=== PATIENT | male | born 1985 ===

== ENCOUNTER 2017-04-29 12:38 | Inpatient (IN) | payer MEDICARE, MEDICAID ==
[2017-04-29 12:40] VITALS: BMI 28.8
[2017-04-29 12:47] VITALS: O2SAT 99
--- NOTE | 2017-04-29 12:55 | ED PDOC ---
Arrival/HPI - General Historian: Patient - General Chief Complaint: Psychiatric Evaluation Time Seen by Provider: 04/29/17 12:53 - History of Present Illness Narrative History of Present Illness (Text): 04/29/17 13:19 31-year-old male sent from [facility] for admission for SI with auditory hallucinations. Patient hearing voices telling him to cut himself. Patient admits to cutting himself on the left upper arm. Denies chest pain or shortness of breath. (Lacy Fernandez) Past Medical History - Provider Review Nursing Documentation Reviewed: Yes - Travel History Have you recently traveled outside [place] w/in the past 3 mons?: No - Infectious Disease Hx of Infectious Diseases: None - Cardiac Hx Cardiac Disorders: No Hx Hypertension: No - Pulmonary Hx Tuberculosis: No - Neurological HX Cerebrovascular Accident: No Hx Seizures: No - HEENT Hx HEENT Disorder: No - Renal Hx Renal Disorder: No - Endocrine/Metabolic Hx Endocrine Disorders: No - Hematological/Oncological Hx Blood Disorders: Yes Hx Cancer: No Hx Hepatitis C: Yes - Integumentary Hx Dermatological Disorder: No - Musculoskeletal/Rheumatological Hx Musculoskeletal Disorders: No - Gastrointestinal Hx Pancreatitis: Yes (alt 93) - Genitourinary/Gynecological Hx Sexually Transmitted Diseases: No - Psychiatric Hx Anxiety: Yes Hx Depression: Yes Hx Schizophrenia: Yes (hearing voices to hurt himself) Hx Substance Use: Yes (heroin) - Surgical History Other/Comment: Right wrist tendon repair for past suicide attempt. 2002 - Anesthesia Hx Anesthesia: Yes Hx Anesthesia Reactions: No Hx Malignant Hyperthermia: No Family/Social History - Physician Review Nursing Documentation Reviewed: Yes Family/Social History: Unknown Family HX Smoking Status: Heavy Smoker > 10 Cigarettes Daily Hx Alcohol Use: Yes Frequency of alcohol use: Daily Hx Substance Use: Yes (heroin) Substance used: HEROIN Allergies/Home Meds Allergies/Adverse Reactions: Allergies No Known Allergies Allergy (Verified 04/29/17 12:43) Home Medications: Home Meds Medication Instructions Recorded Confirmed QUEtiapine [SEROquel] 200 mg PO DAILY 04/29/17 04/29/17 busPIRone [Buspar] 10 mg PO BID 04/29/17 04/29/17 Review of Systems - Review of Systems ENT: absent: Sore Throat, Sinus Congestion Respiratory: absent: SOB, Cough Cardiovascular: absent: Chest Pain Gastrointestinal: absent: Abdominal Pain, Diarrhea, Vomiting Genitourinary Male: absent: Dysuria Skin: Laceration Neurological: absent: Headache Psychiatric: Depression, Suicidal Ideation Physical Exam Vital Signs Reviewed: Yes Temperature: Afebrile Blood Pressure: Normal Pulse: Regular Respiratory Rate: Normal Appearance: Positive for: Well-Appearing, Non-Toxic, Comfortable Pain Distress: None Mental Status: Positive for: Alert and Oriented X 3 - Systems Exam Head: Present: Atraumatic Neck: Present: Normal Range of Motion Respiratory/Chest: Present: Clear to Auscultation, Good Air Exchange. No: Respiratory Distress, Accessory Muscle Use Cardiovascular: Present: Regular Rate and Rhythm Abdomen: No: Tenderness Upper Extremity: Present: Other (+ multiple superficial linear lacerations to left upper arm. no surrounding erythema. ). No: Tenderness, Swelling Neurological: Present: GCS=15 Skin: Present: Warm, Dry Psychiatric: Present: Alert, Oriented x 3, Depressed Mood, Suicidal Ideation, Hallucinations Vital Signs Temp Pulse Resp BP Pulse Ox 04/29/17 12:43 98.2 F 66 18 100/62 99 Medical Decision Making ED Course and Treatment: 04/29/17 13:26 31yr old male, transfer from [facility] for SI and auditory hallucinations labs reviewed. pt in no distress. impression; SI, auditory hallucinations admit behavioral health floor. (Lacy Fernandez) 04/29/17 13:31 I was available for consultation during PA evaluation. The chart was reviewed by me, and I agree with disposition. The documented history was done by the physician inside sales lead. The documented physical exam was done by the physician inside sales lead. The documented procedures were done by the physician inside sales lead. (Yogi Mckeon) Disposition/Present on Arrival - Present on Arrival Any Indicators Present on Arrival: No History of DVT/PE: No History of Uncontrolled Diabetes: No Urinary Catheter: No History of Decub. Ulcer: No History Surgical Site Infection Following: None - Disposition Have Diagnosis and Disposition been Completed?: Yes Disposition Time: 12:55 Patient Plan: Admission - Disposition Diagnosis: Suicidal ideation Disposition: HOSPITALIZED Condition: FAIR Forms: [employer] ([place]ian)
[2017-04-29] MEDS ORDERED: Alum-Mag Hydrox-Simethicone Susp (30 mL) PO PRN (14:28)
[2017-04-29] MEDS ORDERED: Magnesium Hydroxide Susp 30 ml UD PO PRN (14:28)
--- NOTE | 2017-04-29 15:26 | PCM.BM ---
Treatment Plan Problems - Problems identified on initial assessmt Delusions Date Initiated: 04/29/17 Time Initiated: 15:24 Assessment reference: NA Status: Active Priority: 1 Alt. Sleep Patterns Date Initiated: 04/29/17 Time Initiated: 15:24 Assessment reference: NA Status: Active Priority: 2 Anxiety r/t Substance Abuse Date Initiated: 04/29/17 Time Initiated: 15:25 Assessment reference: NA Status: Active Treatment assets and liabiliti Patient Assests: adapts well, cooperative, ADL independent, physically healthy, financial stabiity, cognitively intact Patient Liabilities: live alone (patient is homeless), poor support system, substance abuse, other - Milieu Protocol Maintain good personal hygiene: daily Encourage regular showers, daily Remind patient to perform daily oral care, daily Assist patient to perform ADL's Maintain personal safety: every shift Educate patient to report safety concerns to staff, every shift Monitor environment for contraband/sharps Medication safety: Monitor for expected outcome, potential side effects: every shift, Assess barriers to learning: every shift, Assess readiness for medication education: every shift Family Contact Family involvement: Famliy/SO not involved Family contact: Patient declines to allow family contact at present, Other Discharge/Continuing Care - Education Needs Education Needs: Patient Medication, Patient Diagnosis/Disease Process, Patient Coping Skills, Patient Anger Management skills, Patient Health Practices/Safety , Patient Personal Hygiene/Grooming, Patient Aftercare Safety Plan
[2017-04-29] MEDS: Divalproex 250 mg DR (BID formulation) PO SCH (21:43)
[2017-04-30 07:52] LABS: CHOLESTEROL 166 mg/dL (130-200)
[2017-04-30] MEDS: Divalproex 250 mg DR (BID formulation) PO SCH (09:10)
[2017-04-30 09:23] LABS: PHOSPHOROUS 2.8 mg/dL (2.5-4.5)
--- NOTE | 2017-04-30 12:12 | PCM.BM ---
<Theodore Damico - Last Filed: 04/30/17 12:12> Treatment Plan Problems - Problems identified on initial assessmt Delusions Date Initiated: 04/29/17 Time Initiated: 15:24 Assessment reference: NA Status: Active Priority: 1 Alt. Sleep Patterns Date Initiated: 04/29/17 Time Initiated: 15:24 Assessment reference: NA Status: Active Priority: 2 Anxiety r/t Substance Abuse Date Initiated: 04/29/17 Time Initiated: 15:25 Assessment reference: NA Status: Active Treatment assets and liabiliti Patient Assests: adapts well, cooperative, ADL independent, physically healthy, financial stabiity, cognitively intact Patient Liabilities: live alone (patient is homeless), poor support system, substance abuse, other - Milieu Protocol Maintain good personal hygiene: daily Encourage regular showers, daily Remind patient to perform daily oral care, daily Assist patient to perform ADL's Maintain personal safety: every shift Educate patient to report safety concerns to staff, every shift Monitor environment for contraband/sharps Medication safety: Monitor for expected outcome, potential side effects: every shift, Assess barriers to learning: every shift, Assess readiness for medication education: every shift Family Contact Family involvement: Famliy/SO not involved Family contact: Patient declines to allow family contact at present, Other Discharge/Continuing Care - Education Needs Education Needs: Patient Medication, Patient Diagnosis/Disease Process, Patient Coping Skills, Patient Anger Management skills, Patient Health Practices/Safety , Patient Personal Hygiene/Grooming, Patient Aftercare Safety Plan Treatment Plan Review - Problem Delusions Time Initiated: 15:24 Alt. Sleep Patterns Time Initiated: 15:24 Anxiety r/t Substance Abuse Time Initiated: 15:25 <Jacquelyn Solomon - Last Filed: 05/01/17 13:45> - Diagnosis (1) Heroin dependence Status: Acute Interventions: 05/01/17 13:43 Monitoring withdrawal symptoms Medical detoxification Pharmacotherapy for alcohol/benzos/opioid dependence Maintaining sobriety Relapse prevention Possible rehabilitation Motivational interviewing 12-step programs: AA meetings (2) Schizoaffective disorder Status: Acute Interventions: 05/01/17 13:44 Psychoeducation/psychotherapy Psychopharmacology/adjustment of medications as needed/ monitoring possible side effects Evaluate pt on daily basis Compliance with medications and follow up appointments Long acting medication if pt is noncompliant with pill form Suicide and homicide risk assessment and prevention, coping strategies, safety plan Relapse prevention Reduction of symptoms Improve functional status Possible assertive community treatment Cognitive behavioral therapy Family involvement Possible social skill training as outpatient
--- NOTE | 2017-04-30 13:26 | CARD ---
APPROVED REPORT EKG Measurement Heart [id number] <Conclusion> Normal sinus rhythm Normal ECG
--- NOTE | 2017-04-30 13:39 | CP.PCM.CON ---
<Juliette Page - Last Filed: 04/30/17 17:35> History of Present Illness - History of Present Illness History of Present Illness: 31 year old male with past medical hx of substance abuse and hepatitis C presents to [facility] for auditory hallucinations with suicide attempt. Patient states that he was hearing voices that told him to cut himself. Patient has multiple cuts to his L upper arm. Patient has a history of prior sucide attempt where he cut himself in his R wrist. Patient reports that he wants to stop using heroin. States that he uses approx 20 bag a day for a lot of years. Last use was Sunday night. Currently reports having symptoms of withdrawal. States having body aches. Denies suicidal or homicidal ideation. Denies visual/auditory hallucination, headaches, dizziness, cp, palpitations, sob, urinary symptoms, changes in bowel habits. Allergies: NKDA Medications: denies Medical Hx: Hepatitis C Surgical Hx: denies Social Hx: uses 20 bags of heroin IV daily for "a lot of years, admits to marijuana use, smokes 2 cigs/day, denies alcohol use Family Hx: mother - HTN; father - CVA Review of Systems - Constitutional Constitutional: absent: Chills, Fever - EENT Eyes: absent: Change in Vision Ears: absent: Dizziness - Cardiovascular Cardiovascular: absent: Chest Pain, Dyspnea, Lightheadedness, Palpitations - Respiratory Respiratory: absent: Cough, Dyspnea - Gastrointestinal Gastrointestinal: absent: Abdominal Pain, Bloating, Constipation, Diarrhea, Nausea, Vomiting - Genitourinary Genitourinary: absent: Difficulty Urinating, Dysuria, Urinary Frequency - Musculoskeletal Musculoskeletal: absent: Numbness, Tingling - Neurological Neurological: absent: Dizziness, Numbness, Headaches - Psychiatric Psychiatric: absent: Anxiety, Auditory Hallucinations, Homicidal Ideation, Suicidal Ideation, Visual Hallucinations Past Patient History - Infectious Disease Hx of Infectious Diseases: None - Past Social History Smoking Status: Heavy Smoker > 10 Cigarettes Daily - CARDIAC Hx Cardiac Disorders: No Hx Hypertension: No - PULMONARY Hx Tuberculosis: No - NEUROLOGICAL HX Cerebrovascular Accident: No Hx Seizures: No - HEENT Hx HEENT Problems: No - RENAL Hx Chronic Kidney Disease: No - ENDOCRINE/METABOLIC Hx Endocrine Disorders: No - HEMATOLOGICAL/ONCOLOGICAL Hx Blood Disorders: Yes Hx Cancer: No Hx Hepatitis C: Yes - INTEGUMENTARY Hx Dermatological Problems: No - MUSCULOSKELETAL/RHEUMATOLOGICAL Hx Musculoskeletal Disorders: No - GASTROINTESTINAL Hx Pancreatitis: Yes (alt 93) - GENITOURINARY/GYNECOLOGICAL Hx Sexually Transmitted Disorders: No - PSYCHIATRIC Hx Anxiety: Yes Hx Depression: Yes Hx Schizophrenia: Yes (hearing voices to hurt himself) Hx Substance Use: Yes (heroin) - SURGICAL HISTORY Other/Comment: Right wrist tendon repair for past suicide attempt. 2003 - ANESTHESIA Hx Anesthesia: Yes Hx Anesthesia Reactions: No Hx Malignant Hyperthermia: No Meds Allergies/Adverse Reactions: Allergies Allergy/AdvReac Type Severity Reaction Status Date / Time No Known Allergies Allergy Verified 04/29/17 14:30 - Medications Medications: Current Medications Acetaminophen (Tylenol 325mg Tab) 650 mg PO Q6 PRN PRN Reason: Pain, moderate (4-7) Al Hydrox/Mg Hydrox/Simethicone (Maalox Plus 30 Ml) 30 ml PO DAILY PRN PRN Reason: Indigestion / Heartburn Clonidine HCl (Catapres) 0.1 mg PO Q6H PRN PRN Reason: oppiate withdrawal Last Admin: 04/30/17 09:10 Dose: 0.1 mg Clonidine HCl (Catapres) 0.1 mg PO BID PRN PRN Reason: opioid withdrawals Divalproex Sodium (Depakote Dr (*Bid*)) 250 mg PO [facility] PRN Reason: Protocol Last Admin: 04/30/17 09:10 Dose: 250 mg Haloperidol (Haldol) 5 mg PO Q6H PRN; Protocol PRN Reason: Agitation Last Admin: 04/29/17 21:43 Dose: 5 mg Lorazepam (Ativan) 2 mg PO Q6H PRN; Protocol PRN Reason: Agitation Last Admin: 04/30/17 09:12 Dose: 2 mg Magnesium Hydroxide (Milk Of Magnesia) 30 ml PO DAILY PRN PRN Reason: Constipation Multivitamins/Minerals (Therapeutic-M Tab) 1 tab PO 0800 [facility] Quetiapine Fumarate (Seroquel) 50 mg PO HS [facility] PRN Reason: Protocol Last Admin: 04/29/17 21:44 Dose: 50 mg Tramadol HCl (Ultram) 50 mg PO TID [facility] Physical Exam - Constitutional Appears: Non-toxic, No Acute Distress - Head Exam Head Exam: ATRAUMATIC, NORMAL INSPECTION - Eye Exam Eye Exam: EOMI, Normal appearance Pupil Exam: NORMAL ACCOMODATION, PERRL - ENT Exam ENT Exam: Mucous Membranes Moist - Neck Exam Neck exam: Positive for: Full Rom - Respiratory Exam Respiratory Exam: Clear to Auscultation Bilateral, NORMAL BREATHING PATTERN. absent: Rales, Rhonchi, Wheezes - Cardiovascular Exam Cardiovascular Exam: REGULAR RHYTHM, +S1, +S2 - GI/Abdominal Exam GI & Abdominal Exam: Normal Bowel Sounds, Soft. absent: Guarding, Rebound, Rigid, Tenderness - Extremities Exam Extremities exam: Positive for: full ROM, normal inspection. Negative for: calf tenderness - Back Exam Back exam: NORMAL INSPECTION - Neurological Exam Neurological exam: Alert, CN II-XII Intact, Oriented x3 - Psychiatric Exam Psychiatric exam: Normal Affect, Normal Mood - Skin Skin Exam: Normal Color, Warm Results - Vital Signs Recent Vital Signs: Last Vital Signs Temp 98.5 F 04/30/17 07:47 Pulse 70 04/30/17 07:47 Resp 20 04/30/17 07:47 BP 111/61 04/30/17 07:47 Pulse Ox 99 04/29/17 14:39 - Labs Labs: Laboratory Results - last 24 hr 04/30/17 04/30/17 04/30/17 07:29 07:29 09:15 Hemoglobin A1c 5.4 Phosphorus 2.8 Magnesium 2.0 Triglycerides 46 Cholesterol 166 LDL Cholesterol Direct 78 HDL Cholesterol 64 H Assessment & Plan - Assessment and Plan (Free Text) Assessment: 31 year old male with past medical hx of Hep C and schizophrenia presents with auditory hallucinations with suicide attempt Plan: 1. Hx Hepatitis C -States known Hep C diagnosis that was never treated -Will order hepatitis panel and hepatic US -Monitor LFTs -Avoid hepatotoxic agents -Psych management per primary team -Plan d/w attending 2. Polysubstance abuse -UDS + opiates, cocaine, cannabinoids -Monitor for withdrawal symptoms -Encourage cessation <Edna Arias - Last Filed: 04/30/17 18:30> Meds - Medications Medications: Current Medications Acetaminophen (Tylenol 325mg Tab) 650 mg PO Q6 PRN PRN Reason: Pain, moderate (4-7) Al Hydrox/Mg Hydrox/Simethicone (Maalox Plus 30 Ml) 30 ml PO DAILY PRN PRN Reason: Indigestion / Heartburn Clonidine HCl (Catapres) 0.1 mg PO BID PRN PRN Reason: opioid withdrawals Last Admin: 04/30/17 15:11 Dose: 0.1 mg Divalproex Sodium (Depakote Dr(*Bid*)) 500 mg PO [facility] PRN Reason: Protocol Gabapentin (Neurontin) 300 mg PO TID [facility] PRN Reason: Protocol Loperamide HCl (Imodium) 2 mg PO QID PRN PRN Reason: Diarrhea Lorazepam (Ativan) 2 mg PO Q6H PRN; Protocol PRN Reason: Agitation Last Admin: 04/30/17 09:12 Dose: 2 mg Lorazepam (Ativan) 2 mg IM Q6H PRN; Protocol PRN Reason: agitaiton Magnesium Hydroxide (Milk Of Magnesia) 30 ml PO DAILY PRN PRN Reason: Constipation Multivitamins/Minerals (Therapeutic-M Tab) 1 tab PO 0800 [facility] Olanzapine (Zyprexa Zydis) 5 mg PO [facility] PRN Reason: Protocol Ondansetron HCl (Zofran Odt) 4 mg PO Q8H PRN PRN Reason: Nausea/Vomiting Quetiapine Fumarate (Seroquel) 100 mg PO HS [facility] PRN Reason: Protocol Tramadol HCl (Ultram) 50 mg PO TID [facility] Last Admin: 04/30/17 15:11 Dose: 50 mg Ziprasidone (Geodon Inj) 20 mg IM Q6H PRN; Protocol PRN Reason: agitation/psychosis Results - Vital Signs Recent Vital Signs: Last Vital Signs Temp 98.5 F 04/30/17 07:47 Pulse 76 04/30/17 16:24 Resp 20 04/30/17 07:47 BP 117/68 04/30/17 16:24 Pulse Ox 99 04/29/17 14:39 - Labs Labs: Laboratory Results - last 24 hr 04/30/17 04/30/17 04/30/17 07:29 07:29 09:15 Hemoglobin A1c 5.4 Phosphorus 2.8 Magnesium 2.0 Triglycerides 46 Cholesterol 166 LDL Cholesterol Direct 78 HDL Cholesterol 64 H Attending/Attestation - Attestation I have personally seen and examined this patient.: Yes I have fully participated in the care of the patient.: Yes I have reviewed all pertinent clinical information: Yes Notes (Text): I have seen and examined the patient at bedside. Agree with the above note with the following additions/ exceptions: Briefly this is 31 year old male with history of polysubstance abuse (heroin IV, cocaine and marijuana), known and untreated Hep C who was admitted for auditory hallucinations with suicide attempt secondary to schizophrenia vs substance induced psychosis. Patient is complaining that he is going thru withdrawal. Denies GI distress, flu like symptoms however admits to agitation, irritability and arthralgia. Manage as per psych. Counselling provided by me. He has known and untreated Hep c. He is unsure if he has hep B. Will order for hep panel and liver ultrasound. He has superficial cut moreira on left upper arm. Start bacitracin. Upon discharge patient will follow up with PMD of choice. Dr Edna Arias
--- NOTE | 2017-04-30 16:53 | PCM.PSYCH ---
Initial Psychiatric Evaluation - Initial Psychiatric Evaluation Type of Admission: Voluntary Legal Status: Capacity (atient has capacity to sign consent for treatment) Chief Complaint (in patient's own words): "I want to get out of here, my needs are not addressed, I am withdrawing from opioids" Patient's Reaction to Hospitalization: patient was admitted for disorganized and psychotic behavior, patient intentionally cut his shoulder multiple times, was hearing voices, was not compliant with the medications. History of Present Illness and Precipitating Events: As per [facility] assessment: Pt is a 31 year old male, single, with two children in [place] (as per [facility] h/o). Pt immigrated from [place] 5 years ago, currently lives in a fpc, does not work, receives $300 in disability a month and "robs people" for money. Pt was transferred from the [facility] for Schizophrenia- paranoid type, depression, pt was also using heroin daily about 20 bags intravenously, pt intentionally cut his left shoulder multiple times as per pt he was hearing command type hallucinations. Due to the severity of patients symptoms and aggressive/disorganized behavior, pt could not be maintained as outpatient setting, needs further evaluation and stabilization in acute psychiatric unit. patient was seen at treatment team meeting, patient presented to be with psychomotor retardation, as well as not participating in the interview, no eye contact, speech was slurred, patient is Citizen [place]-speaking and this display card writer utilized the nurse Foster for translation. As per history patient was discharged from the [facility] about a week ago , after discharge patient was not compliant with the medications, relapse on drugs, patient was using heroine about 20 bags a day intravenously, patient said that he was noncompliant with the medications, and does not have outpatient psychiatrist, patient complain that he has withdrawal symptoms, pain all over his body, nausea, inability to sleep. pt was irritable, submitted 48 hr notice requested to be d/c, "because my withdrawals are not addressed", this display card writer emphasized the fact that this unit is not detox unit, was educated about tx plan and all meds. pt verbalized understanding. Stressors: pt does not work, does not have an income, pt is heroin addict. Personal hygiene/ ADLS: very poor. Psychosis: reported to hear voices, command type, pt also is guarded and paranoid, Depression: pt reported to feel depressed, hopeless and helpless, denied suicidal thoughts/plans/intent. pt denied h/o abuse. Substance abuse: heroin IV 20 bags. Alcohol: denied Smoking: denied smoking Past psychiatric h/o: was recently d/c from [facility] Apr 23, was noncompliant with meds and f/u appt. detox 2x; no rehab; multiple admissions at [facility], was d/c on zyprexa and depakote, will resume. Hospitalization: [facility] Suicidal attempts: reported prior to come to the hospital cut his left shoulder , responding to the voices. Medical h/o: relatively healthy Family h/o: denied Social h/o: homeless, chronic IV heroin abuse. Treatment goals: "I want to get better" Labs: Lab Results 04/30/17 09:15: Phosphorus 2.8, Magnesium 2.0 04/30/17 07:29: Hemoglobin A1c 5.4 04/30/17 07:29: Triglycerides 46, Cholesterol 166, LDL Cholesterol Direct 78, HDL Cholesterol 64 H Vital Signs Temp Pulse Resp BP Pulse Ox 04/30/17 16:24 76 117/68 04/30/17 07:47 98.5 F 70 20 111/61 04/29/17 14:39 98.7 F 65 20 100/63 99 04/29/17 12:43 98.2 F 66 18 100/62 99 Review of Systems: see Medical consult. MSE: irritable, angry, psychotic, pt deemed to be unreliable historian, pt looks stated age, poor personal hygiene, poor ADLs, there is irritability and psychomotor retardation, speech was:slow, slurred, poor eye contact, mood described: "I am fine, I want to go home", affect: angry, irritable, mood incongruent, thought process: disorganized, thought content: SI denied, but ?, pt denied HI, pt reported command type hallucinations, denied paranoid ideation , but pt is guarded, no insight, poor judgment: unpredictable impulse control. Impression: schizophrenia as per h/o opioid use disorder opioid withdrawals substance induced psychosis Treatment plan: Milieu/structure/supportive therapy Medical consult appreciated, see medical team note for more detailed info SW consultation for discharge plan and social issues Med management depakote 500 mg po bid will be resumed zyprexa zydis will be resumed 5mg po amhs PRN meds pain meds medical consult pt submitted 48hr notice will see Family involvement Follow up on labs Will monitor closely Pt was educated about risk/benefits and alternatives of medications, coping strategies (safety plan, suicide prevention), relapse prevention, importance of follow up with psychiatrist and therapist, stay away from drugs/alcohol/smoking Current Medications: Active Medications Generic Name Dose Route Start Last Admin Trade Name Freq PRN Reason Stop Dose Admin Acetaminophen 650 mg 04/29/17 14:24 Tylenol 325mg Tab PO Q6 PRN Pain, moderate (4-7) Al Hydrox/Mg Hydrox/Simethicone 30 ml 04/29/17 14:28 Maalox Plus 30 Ml PO DAILY PRN Indigestion / Heartburn Clonidine HCl 0.1 mg 04/29/17 14:43 Catapres PO Q6H PRN oppiate withdrawal Divalproex Sodium 250 mg 04/29/17 22:00 04/29/17 21:43 Depakosalo Clark (*Bid*) PO 250 mg AMHS RALPH Administration Protocol Haloperidol 5 mg 04/29/17 14:47 04/29/17 21:43 Haldol PO 5 mg Q6H PRN Administration Agitation Protocol Lorazepam 2 mg 04/29/17 14:49 04/29/17 21:44 Ativan PO 2 mg Q6H PRN Administration Agitation Protocol Magnesium Hydroxide 30 ml 04/29/17 14:28 Milk Of Magnesia PO DAILY PRN Constipation Quetiapine Fumarate 50 mg 04/29/17 22:00 04/29/17 21:44 Seroquel PO 50 mg HS RALPH Administration Protocol Past Psychiatric History - Past Psychiatric History Pertinent Medical Hx (Current Medical&Sleep Prob, Allergies): Allergies Allergy/AdvReac Type Severity Reaction Status Date / Time No Known Allergies Allergy Verified 04/29/17 14:30 QUEtiapine [Seroquel] 100 mg PO HS #30 tab 04/23/17 QUEtiapine [SEROquel] 200 mg PO DAILY 04/29/17 busPIRone [Buspar] 10 mg PO BID 04/29/17 DSM 5 DX - Recommended/Plan of Treatment Projected ELOS: 7days Prognosis: guarded Discharge Plan and Discharge Criteria: Pt will be not depressed or manic, will be more hopeful, will be not psychotic or anxious, will be not having thoughts of harming self or others, will be tolerating medications well, will not have major side effects, will be able to function, will not pose threat to self or others. - Smoking Cessation Smoking Cessation Initiated: No Reason for not providing: denied smoking
[2017-04-30] MEDS: OLANZapine 5 mg Disintegrating Tab PO SCH (21:33)
[2017-04-30] MEDS: Divalproex 500 mg DR(BID formulation) PO SCH (21:33)
[2017-05-01 08:01] LABS: BASO # 0.01 K/mm3 (0.0-2.0); BASO % 0.2 % (0.0-3.0); EOS # 0.1 (0.0-0.7); EOS % 1.4 % (1.5-5.0); GRAN # 3.28 (1.4-6.5); GRAN % 65.1 % (50.0-68.0); HEMATOCRIT 37.8 % (42.0-52.0); LYMPH # 1.4 (1.2-3.4); MEAN CELL VOLUME 85.3 fl (80.0-105.0); MEAN CORPUSCULAR HGB CONC 35.2 g/dl (31.0-37.0); MEAN PLATELET VOLUME 9.8 fl (7.0-11.0); MONO # 0.3 (0.1-0.6); MONO % 6.3 % (1.0-6.0); RED CELL DISTRIBUTION WIDTH 12.2 % (11.5-14.5)
[2017-05-01 08:11] LABS: ALB/GLOB RATIO 1.3 (1.1-1.8); ALKALINE PHOSPHATASE 61 U/L (38-126); ALT/SGPT 117 U/L (7-56); AST/SGOT 68 U/L (17-59); BILIRUBIN,TOTAL 0.5 mg/dL (0.2-1.3); BLOOD UREA NITROGEN 11 mg/dL (7-21); CALCIUM 9.3 mg/dL (8.4-10.5); CARBON DIOXIDE 28 mmol/L (21-33); CHLORIDE 103 mmol/L (95-110); GFR AFRICAN-AMERICAN > 60; GLUCOSE,RANDOM 89 mg/dL (70-110); POTASSIUM 4.2 mmol/L (3.6-5.0); SODIUM 141 mmol/L (132-148)
[2017-05-01] MEDS: Multivitamin With Minerals Tab PO SCH (08:11)
[2017-05-01] MEDS: Bacitracin/Neomycin/Polymyxin Oint(30GM) TOP SCH ×2 (08:12→18:34)
[2017-05-01] MEDS: Divalproex 500 mg DR(BID formulation) PO SCH ×2 (13:27→21:11)
[2017-05-01] MEDS: OLANZapine 5 mg Disintegrating Tab PO SCH ×2 (13:27→21:11)
--- NOTE | 2017-05-01 14:53 | PCM.PYCHPN ---
Psychiatric Progress Note - Psychiatric Progress Note Patient seen today, length of contact: 30min Patient Chief Complaint: "I want to get out of here, my needs are not addressed, I am depressed because I am in a lot of pain..." Medical Problems: see medical consult for more detailed information Diagnostic Results: 05/01/17 07:51 05/01/17 07:51 Lab Results 05/01/17 07:51: Hepatitis A IgM Ab Negative, Hep Bs Antigen Negative, Hep B Core IgM Ab Negative, Hepatitis C Antibody Pending 05/01/17 07:51: TSH 3rd Generation 0.23 L 05/01/17 07:51: Sodium 141, Potassium 4.2, Chloride 103, Carbon Dioxide 28, Anion Gap 14, BUN 11, Creatinine 0.8, Est GFR ( Amer) > 60, Est GFR (Non- Af Amer) > 60, Random Glucose 89, Calcium 9.3, Total Bilirubin 0.5, AST 68 H, ALT 117 H, Alkaline Phosphatase 61, Total Protein 7.0, Albumin 4.0, Globulin 3.0 , Albumin/Globulin Ratio 1.3 05/01/17 07:51: WBC 5.0, RBC 4.43, Hgb 13.3 L, Hct 37.8 L, MCV 85.3, MCH 30.0, MCHC 35.2, RDW 12.2, Plt Count 164, MPV 9.8, Gran % 65.1, Lymph % (Auto) 27.0, [place] % (Auto) 6.3 H, Eos % (Auto) 1.4 L, Baso % (Auto) 0.2, Gran # 3.28, Lymph # 1.4, [place] # 0.3, Eos # 0.1, Baso # 0.01 04/30/17 09:15: Phosphorus 2.8, Magnesium 2.0 04/30/17 07:29: Hemoglobin A1c 5.4 04/30/17 07:29: Triglycerides 46, Cholesterol 166, LDL Cholesterol Direct 78, HDL Cholesterol 64 H Vital Signs Temp Pulse Resp BP Pulse Ox 05/01/17 10:00 98.2 F 78 20 124/77 05/01/17 02:46 81 113/70 04/30/17 16:24 76 117/68 04/30/17 07:47 98.5 F 70 20 111/61 04/29/17 14:39 98.7 F 65 20 100/63 99 04/29/17 12:43 98.2 F 66 18 100/62 99 DSM 5 Symptoms Update: Pt is a 31 year old male, single, with two children in [place]. Pt immigrated from [place] 5 years ago, currently lives in a halfway, does not work, long h/o opioid addiction, was transferred from the [facility] for evaluation of psychosis, command type hallucinations, pt cut his shoulder prior this admission, multiple suicidal attempts (most recent last week, pt tried to hang himself and overdose on drugs), pt verbalized thoughts of harming self in the ED, pt was admitted for evaluation and stabilization, meds titration. pt submitted 48hr notice yesterday, this advertising copy writer tried her best to educate pt about tx plan and possible inpatient rehab, but pt refused to rescinded it, will initiate [facility] screening process. pt was seen today, pt is [place] speaking, utilized [employer] system, cad application support specialist [place] [id number]. pt presented to be irritable, said that he wants to leave the hospital because he is in pain, pt said that he still feels depressed, but denied thoughts of harming self or others (it is questionable, pt has multiple cuts on his left shoulder, self inflicted), self reported two suicidal attempts prior to come to the hospital (last week, tried to hang self and OD on drugs). Psychosis: reported to hear voices, command type, pt also is guarded and paranoid. Depression: pt reported to feel depressed, hopeless and helpless, denied suicidal thoughts/plans/intent. Review of Systems: see Medical consult. MSE: irritable, angry, pt deemed to be unreliable historian, pt looks stated age , poor personal hygiene, poor ADLs, there is irritability and psychomotor retardation, speech was: slow, slurred, poor eye contact, mood described: "I am fine, I want to go home", affect: angry, irritable, mood incongruent, thought process: is better organized, thought content: SI denied, but ?, pt denied HI, pt reported command type hallucinations, denied paranoid ideation, but pt is guarded, no insight, poor judgment: unpredictable impulse control. Impression: schizophrenia as per h/o opioid use disorder opioid withdrawals substance induced psychosis Treatment plan: Milieu/structure/supportive therapy Medical consult appreciated, see medical team note for more detailed info SW consultation for discharge plan and social issues Med management depakote 500 mg po bid resumed zyprexa zydis 5mg po amhs for psychosis PRN meds pain meds medical consult pt submitted 48hr notice, refused to rescinded it will call [facility] for screening Family involvement Follow up on labs Will monitor closely Pt was educated about risk/benefits and alternatives of medications, coping strategies (safety plan, suicide prevention), relapse prevention, importance of follow up with psychiatrist and therapist, stay away from drugs/alcohol/smoking Medication Change: Yes Medical Record Reviewed: Yes Consults ordered or reviewed: medical consult appreciated Goal/Treatment Plan - Goal/Treatment Plan Need for Continued Stay: Remain at risks for inpatient hospitalization, Severe depression anxiety, Discharge may exacerbated symptoms, Failed transitioning, Severe functional impairment Estimated Date of D/C: 05/04/17
[2017-05-02 09:01] LABS: FREE T4 1.13 ng/dL (0.78-2.19)
[2017-05-02 09:15] LABS: THYROID STIMULATING HORMONE 1.32 mIU/mL (0.46-4.68)
[2017-05-02] MEDS: Divalproex 500 mg DR(BID formulation) PO SCH (10:19)
[2017-05-02] MEDS: Bacitracin/Neomycin/Polymyxin Oint(30GM) TOP SCH (10:20)
[2017-05-02] MEDS: Multivitamin With Minerals Tab PO SCH (10:20)
[2017-05-02] MEDS: OLANZapine 5 mg Disintegrating Tab PO SCH (10:20)
[2017-05-02 10:31] VITALS: BP 116/72; PULSE 72; RESP 20; TEMP 97.6
--- NOTE | 2017-05-02 14:49 | PCM.PYCHDC ---
Mental Status Examination - Mental Status Examination Orientation: Person, Place, Situation, Time Memory: Intact Mood: Depressed Affect: Constricted Attention: Poor Concentration: Poor Association: Loose Fund of Knowledge: Poor Formal Thought Process: No Impairment Description of patient's judgement and insight: poor but with some improvement Psychotic Thoughts and Behaviors: denied Suicidal Ideation: No Current Homicidal Ideation?: No Plan: denied intent or plan Discharge Summary - Discharge Note Reason for Hospitalization: patient was admitted for disorganized and psychotic behavior, patient intentionally cut his shoulder multiple times, was hearing voices, was not compliant with the medications. Psychiatric History (includes Medical, Family, Personal Hx): multiple psych admissions, h/o suicidal attempts Laboratory Data: Abnormal Lab Results 05/01/17 05/01/17 05/02/17 07:51 07:51 08:30 Free T4 1.13 TSH 3rd Generation 1.32 RPR Nonreactive Hepatitis A IgM Ab Negative Hep Bs Antigen Negative Hep B Core IgM Ab Negative Hepatitis C Antibody Reactive Vital Signs Temp Pulse Resp BP Pulse Ox 05/02/17 10:00 97.6 F 72 20 116/72 05/02/17 07:11 97.3 F L 68 16 115/64 05/01/17 18:00 66 124/70 05/01/17 10:00 98.2 F 78 20 124/77 05/01/17 02:46 81 113/70 04/30/17 16:24 76 117/68 04/30/17 07:47 98.5 F 70 20 111/61 04/29/17 14:39 98.7 F 65 20 100/63 99 04/29/17 12:43 98.2 F 66 18 100/62 99 05/01/17 07:51 05/01/17 07:51 Lab Results 05/02/17 08:30: Free T4 1.13, TSH 3rd Generation 1.32 05/01/17 07:51: Hepatitis A IgM Ab Negative, Hep Bs Antigen Negative, Hep B Core IgM Ab Negative, Hepatitis C Antibody Reactive 05/01/17 07:51: RPR Nonreactive 05/01/17 07:51: TSH 3rd Generation 0.23 L 05/01/17 07:51: Sodium 141, Potassium 4.2, Chloride 103, Carbon Dioxide 28, Anion Gap 14, BUN 11, Creatinine 0.8, Est GFR ( Amer) > 60, Est GFR (Non- Af Amer) > 60, Random Glucose 89, Calcium 9.3, Total Bilirubin 0.5, AST 68 H, ALT 117 H, Alkaline Phosphatase 61, Total Protein 7.0, Albumin 4.0, Globulin 3.0 , Albumin/Globulin Ratio 1.3 05/01/17 07:51: WBC 5.0, RBC 4.43, Hgb 13.3 L, Hct 37.8 L, MCV 85.3, MCH 30.0, MCHC 35.2, RDW 12.2, Plt Count 164, MPV 9.8, Gran % 65.1, Lymph % (Auto) 27.0, [place] % (Auto) 6.3 H, Eos % (Auto) 1.4 L, Baso % (Auto) 0.2, Gran # 3.28, Lymph # 1.4, [place] # 0.3, Eos # 0.1, Baso # 0.01 04/30/17 09:15: Phosphorus 2.8, Magnesium 2.0 04/30/17 07:29: Hemoglobin A1c 5.4 04/30/17 07:29: Triglycerides 46, Cholesterol 166, LDL Cholesterol Direct 78, HDL Cholesterol 64 H Consultations:: List each consultation separately and include: 1. Reason for request. 2. Findings. 3. Follow-up Consultations: medical consult appreciated Summary of Hospital Course include:: 1. Description of specific treatment plan utilized for patients during their course of treatmen. 2. Summarize the time- course for resolution of acute symptoms and/or regressed behaviors. 3. Describe issues identified and worked on during hospitalization. 4. Describe medication utilized. 5. Describe medical problems identified and treated. 6. Reassessment of suicide risk Summary of Hospital Course: As per [facility] assessment: Pt is a 31 year old male, single, with two children in [place] (as per [facility] h/o). Pt immigrated from [place] 5 years ago, currently lives in a intermediate, does not work, receives $300 in disability a month and "robs people" for money. Pt was transferred from the [facility] for Schizophrenia- paranoid type, depression, pt was also using heroin daily about 20 bags intravenously, pt intentionally cut his left shoulder multiple times as per pt he was hearing command type hallucinations. Due to the severity of patients symptoms and aggressive/disorganized behavior, pt could not be maintained as outpatient setting, needs further evaluation and stabilization in acute psychiatric unit. patient was seen at treatment team meeting, patient presented to be with psychomotor retardation, as well as not participating in the interview, no eye contact, speech was slurred, patient is [place]-speaking and this director underwriter sales utilized the nurse Cristian for translation. As per history patient was discharged from the [facility] about a week ago , after discharge patient was not compliant with the medications, relapse on drugs, patient was using heroine about 20 bags a day intravenously, patient said that he was noncompliant with the medications, and does not have outpatient psychiatrist, patient complain that he has withdrawal symptoms, pain all over his body, nausea, inability to sleep. pt was irritable, submitted 48 hr notice requested to be d/c, "because my withdrawals are not addressed", this director underwriter sales emphasized the fact that this unit is not detox unit, was educated about tx plan and all meds. pt verbalized understanding. Stressors: pt does not work, does not have an income, pt is heroin addict. Personal hygiene/ ADLS: very poor. Psychosis: reported to hear voices, command type, pt also is guarded and paranoid, Depression: pt reported to feel depressed, hopeless and helpless, denied suicidal thoughts/plans/intent. pt denied h/o abuse. Substance abuse: heroin IV 20 bags. Alcohol: denied Smoking: denied smoking Past psychiatric h/o: was recently d/c from [facility] Apr 23, was noncompliant with meds and f/u appt. detox 2x; no rehab; multiple admissions at [facility], was d/c on zyprexa and depakote, will resume. Hospitalization: [facility] Suicidal attempts: reported prior to come to the hospital cut his left shoulder , responding to the voices. Medical h/o: relatively healthy Family h/o: denied Social h/o: homeless, chronic IV heroin abuse. Treatment goals: "I want to get better" Labs: Lab Results 04/30/17 09:15: Phosphorus 2.8, Magnesium 2.0 04/30/17 07:29: Hemoglobin A1c 5.4 04/30/17 07:29: Triglycerides 46, Cholesterol 166, LDL Cholesterol Direct 78, HDL Cholesterol 64 H Vital Signs Temp Pulse Resp BP Pulse Ox 04/30/17 16:24 76 117/68 04/30/17 07:47 98.5 F 70 20 111/61 04/29/17 14:39 98.7 F 65 20 100/63 99 04/29/17 12:43 98.2 F 66 18 100/62 99 Review of Systems: see Medical consult. MSE: irritable, angry, psychotic, pt deemed to be unreliable historian, pt looks stated age, poor personal hygiene, poor ADLs, there is irritability and psychomotor retardation, speech was:slow, slurred, poor eye contact, mood described: "I am fine, I want to go home", affect: angry, irritable, mood incongruent, thought process: disorganized, thought content: SI denied, but ?, pt denied HI, pt reported command type hallucinations, denied paranoid ideation , but pt is guarded, no insight, poor judgment: unpredictable impulse control. Impression: schizophrenia as per h/o opioid use disorder opioid withdrawals substance induced psychosis pt was screened by [facility] was transferred with no events - Diagnosis (1) Heroin dependence Status: Acute (2) Schizoaffective disorder Status: Acute - Final Diagnosis (DSM 5) Condition upon Discharge: FAIR Disposition: OTHER INSTITUTION - Smoking Cessation Smoking Cessation Medication prescribed: Yes - Antipsychotic Medications Pt discharged on 2 or more routine antipsychotic medications: No
== END 2017-05-02 11:38 | DRG 885 ==
LOC: ED 12:38 → ERH 13:23 → PSYC 14:00
PROVIDERS: ADMIT Psychiatry & Neurology Psychiatry; ATTEND Psychiatry & Neurology Psychiatry
DX: F25.9 Schizoaffective disorder, unspecified (principal); R45.851 Suicidal ideations; F20.0 Paranoid schizophrenia; F11.23 Opioid dependence with withdrawal; B19.20 Unspecified viral hepatitis C without hepatic coma; F12.90 Cannabis use, unspecified, uncomplicated; F17.210 Nicotine dependence, cigarettes, uncomplicated; F19.959 Other psychoactive substance use, unspecified with psychoactive substance-induced psychotic disorder, unspecified; F32.89 Other specified depressive episodes; Z79.899 Other long term (current) drug therapy; Z82.3 Family history of stroke; Z82.49 Family history of ischemic heart disease and other diseases of the circulatory system; Z91.14 Patient's other noncompliance with medication regimen; F41.9 Anxiety disorder, unspecified; Z87.19 Personal history of other diseases of the digestive system; R40.2412 Glasgow coma scale score 13-15, at arrival to emergency department; Z59.0 Homelessness